=== PATIENT | female | born 1990 | race Caucasian/White ===

== ENCOUNTER 2018-10-27 21:57 | Emergency (ER) | payer OTHER ==
--- NOTE | 2018-10-27 22:22 | EDPHY ---
General - History Smoking Status: Never smoked Time Seen by Provider: 10/27/18 22:21 Narrative: PHYSICIAN DOCUMENTATION: The patient was evaluated and managed by the Physician Bee Farmer. My co- signature indicates that I have reviewed this chart and I agree with the findings and plan of care as documented. I am the secondary supervising physician. (Melody Pritchard) CLINICAL IMPRESSION: Right hip pain, muscle strain ASSESSMENT/PLAN: Patient is a 27-year-old female with no significant medical history presents to the emergency department with acute on chronic right hip and hamstring pain. Patient is not toxic-appearing, she is in no acute distress. I was unable to elicit any tenderness to palpation along her spine or hip, she did have tenderness to palpation at her proximal hamstring. She had no pain with passive range of motion to suggest septic joint. X-ray negative for fracture dislocation. I suspect her symptoms are secondary to myofascial strain. She does not have a primary care provider, I have given her a referral to ortho and PCP. She will continue crutches as needed for discomfort. Return precautions discussed. DIFFERENTIAL DX: Differential diagnosis including but not limited to fracture, dislocation, radicular pain, muscle strain CHIEF COMPLAINT: Right hip pain HPI: Patient is a 27-year-old female with no significant medical history who presents to the emergency department with acute on chronic right hip pain. Patient reports she has had 2 years of intermittent right hip discomfort, never seen and evaluated. Yesterday she was playing Frisbee, planted her right leg when she felt a pop and sudden discomfort in the right hip and upper hamstring. She was able to ambulate after the incident however has progressive discomfort in her hip and hamstring area. She denies any direct trauma or injury. She denies any midline back pain or radiation down her leg. Patient denies saddle paresthesias, lower extremity numbness, tingling, major motor weakness, urinary retention or bowel/bladder incontinence. PAST MEDICAL HISTORY: Denies Pertinent Past Surgical History: Denies Family History: Not contributory Social History: Denies ROS: A full 10 point review of systems was negative except for those mentioned in HPI. PHYSICAL EXAM: General Appearance: Alert, well-appearing and in no acute distress. HENT: Normocephalic on Eyes: PERRLA, no acute vision change, nystagmus, swelling, discharge, pain or photosensitivity. Conjunctiva pink, no pallor or injection Neck: Supple, nontender, no lymphadenopathy, no midline pain, FROM, no meningismus. Back: No step-off, palpable bony abnormality, edema, erythema or ecchymosis of the cervical, thoracic or lumbar spines. No tenderness to palpation of the thoracic or lumbar spines. Full range of motion of all spines. 5/5 and equal strength of the UEs and LEs bilaterally including shoulder shrug. Pulses: 2+ and equal radial, DP and PT pulses bilaterally. Sensation intact and symmetric to light touch from face, UEs and LEs bilaterally. Pelvis is stable and nontender. I am unable to elicit any tenderness to palpation of her hip. Patient has full range of motion of her right hip, no tenderness with passive range of motion. No tenderness with active range of motion when sitting. She has pain with ambulation to her inferior buttock and upper hamstring. Respiratory: There are no retractions, lungs are clear to auscultation. Cardiac: Regular rate and rhythm, no murmurs or gallops. Gastrointestinal: Abdomen is soft, nontender, bowel sounds normal, no masses/ hernia, no rigidity, guarding or focal peritoneal findings. Skin: Warm, dry, no rashes, no nodules on palpation. Upper Extremities: Intact distal pulses, Full range of motion intact, no tenderness, no ecchymosis or edema Lower Extremities: Left lower extremity is unremarkable- Intact distal pulses, No edema, No tenderness, No cyanosis, full range of motion intact. Right lower extremity-right thigh compartment is soft, she is tender at the very proximal hamstring and inferior gluteal region. There is no ecchymosis or abrasions. Right knee is nontender with full range of motion. 2+ dorsalis pedis. Right lower extremity otherwise unremarkable. No calf tenderness bilaterally. MEDICAL DECISION MAKING: Patient was seen independently. Secondary supervising physician at time of evaluation was Dr. Pritchard, she did not evaluate this patient. Diagnosis: Right hip and hamstring pain. New, requires workup Summary: See Assessment and Plan for summary of ED visit Clinical lab tests: Not applicable. Independent visualization of images, tracing, or specimens: Yes. Decision to obtain medical records or history from someone other than the patient: No Review / Summarize previous medical records: Yes Discussed patient with another provider: Yes, Dr. Pritchard Patient Progress: Stable, discharge. (Michelle Harvey) - Objective Vital Signs: Initial Vital Signs Temperature (C) 36.8 C 10/27/18 21:58 Heart Rate 71 10/27/18 21:58 Respiratory Rate 18 10/27/18 21:58 Blood Pressure 133/67 H 10/27/18 21:58 O2 Sat (%) 97 10/27/18 21:58 O2 Delivery Mode Room Air Allergies/Adverse Reactions: No Known Allergies Allergy (Unverified 10/27/18 22:01) Home Medications: Medication Instructions Recorded Multivitamin 05/20/14 Control 12/20/15 Departure - Departure Disposition: Home, Routine, Self-Care Clinical Impression: Hip pain, Musculoskeletal pain Condition: Good Instructions: Additional Information Additional Instructions: DISCHARGE INSTRUCTIONS FROM YOUR DOCTOR Thank you for visiting our emergency department today. Please keep in mind that discharge from the emergency department does not mean that there is nothing wrong - it simply means that we have not identified an emergency condition that requires further evaluation or treatment in the hospital. Please call tomorrow morning to schedule an appointment with a primary care provider. Please call orthopedic surgery to schedule follow-up for your ongoing hip pain. You can walk and bear weight as tolerated. For pain control: You may take Tylenol, I recommend 500-1000 mg every 6-8 hours as needed. Take with food and a full glass of water. Stop taking if this is upsetting her stomach. Do not exceed 4000 mg in a 24 hr period. You may also take ibuprofen, recommend 400 mg every 6 hr. Take with food and a full glass of water. Stop taking if this upsets her stomach. Do not exceed 2400 mg in a 24 hr period. Call and schedule a follow-up re-evaluation appointment with your primary care physician in the next 3-7 days. As discussed, you may require further evaluation and/or treatment, ie: an MRI, physical therapy, and/or an orthopedic consultation-- all depending on your healing course. Return for increased or unmanageable pain, new injury, new site of pain, numbness, tingling, weakness of the leg, coolness or discoloration of the leg/ foot/ankle, redness, swelling, fever, difficulty breathing, chest pain, calf pain, ankle swelling, severe headache, back pain, or for any other new, worsening, or worrisome symptoms. People present with illnesses and injuries in different ways, and it is always possible that we have missed something. You may always return for re-evaluation if symptoms worsen or if they are not improving or if you develop new/different symptoms. Again, thank you for choosing our emergency department. We hope that you feel better. Referrals: NONE *PRIMARY CARE P,. [Primary Care Provider] - As per Instructions Marlena eVras MD [Medical Doctor] - 2-3 days, call for appt. (Please establish care with a primary care provider.) Chadwick Medina MD [Medical Doctor] - 2-3 days, call for appt.
[2018-10-27 23:47] VITALS: BP 130/69
== END 2018-10-27 23:46 | disposition home or self-care (01) ==
DX: M25.551 Pain in right hip (principal); Y93.74 Activity, frisbee; Y92.830 Public park as the place of occurrence of the external cause